=== PATIENT | female | born 1955 | race Caucasian/White ===

== ENCOUNTER 2023-06-24 07:30 | Inpatient (IN) | payer BC, MEDICAID ==
[2023-06-20 11:37] LABS: BASOPHILS % (AUTO) 0.5 % (0-1); EOSINOPHILS # (AUTO) 0.4 X10'3 (0-0.9); EOSINOPHILS % (AUTO) 5.2 % (0-6); LYMPHOCYTES # (AUTO) 1.7 X10'3 (1.1-4.8); LYMPHOCYTES % (AUTO) 23.9 % (21-51); MEAN CORPUSCULAR HEMOGLOBIN 30.2 PG (27.0-31.0); MEAN CORPUSCULAR HGB CONC 32.7 g/dL (33.0-36.5); MEAN CORPUSCULAR VOLUME 92.5 FL (78-98); MEAN PLATELET VOLUME 7.5 FL (7.4-10.4); MONOCYTES # (AUTO) 0.9 X10'3 (0-0.9); MONOCYTES % (AUTO) 13.1 % (2-12); NEUTROPHILS % (AUTO) 57.3 % (42-75); PRE OP HEMATOCRIT 40.3 % (35.0-45.0); PRE OP HEMOGLOBIN 13.1 g/dL (12.0-16.0); PRE OP PLATELET COUNT 270 X10'3 (140-440); RED BLOOD COUNT 4.36 X10'6 (4.20-5.60); RED CELL DISTRIBUTION WIDTH 14.6 % (11.5-14.5)
[2023-06-20 12:16] LABS: ALBUMIN 3.4 G/DL (3.4-5.0); ALBUMIN/GLOBULIN RATIO 0.9 (1.1-1.5); ALKALINE PHOSPHATASE 97 IU/L (46-116); BLOOD UREA NITROGEN 13 MG/DL (7-18); CALCIUM 8.9 MG/DL (8.5-10.1); CHLORIDE 103 MMOL/L (99-107); PRE OP ALT 21 U/L (30-65); PRE OP ANION GAP 8 (8-16); PRE OP AST 22 U/L (10-37); PRE OP BILIRUB, TOTAL 0.3 MG/DL (0.0-1.0); PRE OP GLUCOSE 96 MG/DL (70-104); PRE OP POTASSIUM 4.3 MMOL/L (3.4-5.1); PRE OP SODIUM 138 MMOL/L (135-145); TOTAL CARBON DIOXIDE 27.3 MMOL/L (24-32); TOTAL PROTEIN 7.4 G/DL (6.4-8.2); eGFR 55 ML/MIN
[~2023-06-24] VITALS: Ht 165.1 cm; Wt 92.5 kg
[2023-06-24] VITALS (40 sets, daily range): BP systolic 0–131; BP diastolic 53–88; PULSE 68–86; RESP 8–18; TEMP 97.8–98; O2SAT 90–99
[~2023-06-24 07:30] MED LIST: ALBU8.5H17 INH; AMLO5TAB PO; BUPR-317 PO; CELE200C PO; DOCUMENT DATE & TIME OF BETA-BLOCKER PO ONE; EXEM25TA5 PO; FLUT16SP26 BOTHNARES; LEVO25TA7 PO; LOSA-415 PO; METO50TA16 PO; PREG150C47 PO; TRAZ-251 PO; VENL100T4 PO; cefazolin 2gm/D5W 100mL 100 ML IV ONE; famotidine 20mg tablet PO ONE; ringers solution, lacted 1,000 ML IV SCH; tranexamic acid 650mg tablet PO ONE; vancomycin 1,500 MG in NS 300ml IV soln IV ONE
[2023-06-24] MEDS ORDERED: BUPIVACAINE/MELOXICAM 14 ML VIAL IL ONE ×3 (10:38→13:00)
[2023-06-24] MEDS ORDERED: labetalol 20mg/4ml (5mg/ml) syringe IV PRN (10:55)
[2023-06-24] MEDS ORDERED: acetaminophen 1,000mg/100ml IV 100 ML IV PRN (10:55)
[2023-06-24] MEDS ORDERED: HYDROmorphone/PF 0.2 MG/ML SYRINGE IV PRN ×2 (10:55)
[2023-06-24] MEDS ORDERED: ringers solution, lacted 1,000 ML IV SCH (10:55)
[2023-06-24] MEDS ORDERED: ondansetron/PF 4mg/2ml inj IV PRN ×2 (10:55→13:20)
[2023-06-24] MEDS ORDERED: meperidine/PF 25mg/ml syringe IV PRN ×2 (10:55)
[2023-06-24] MEDS ORDERED: BUPIVAcaine/PF 2.5 mg/ml (0.25%) 30ml vial ONE (11:08)
[2023-06-24] MEDS ORDERED: fentaNYL/PF 50MCG/1 ML 2ML syringe ONE (11:18)
[2023-06-24] MEDS ORDERED: sevoflurane 250ml liquid IH ONE (11:18)
[2023-06-24] MEDS ORDERED: midazolam 1 mg/ML 2ml injection ONE (11:18)
[2023-06-24] MEDS ORDERED: ROPIVAcaine 0.5% (5mg/ml) 30ml vial ONE (12:35)
[2023-06-24] MEDS ORDERED: propofol inj 20 ML IV ONE (12:35)
[2023-06-24] MEDS ORDERED: dexamethasone sod phosphate 4mg/ml inj. ONE (12:36)
[2023-06-24] MEDS ORDERED: ondansetron/PF 4mg/2ml inj ONE (12:37)
[2023-06-24] MEDS ORDERED: acetaminophen 1,000mg/100ml IV 100 ML IV ONE (13:09)
[2023-06-24] MEDS ORDERED: HYDROcodone/acetaminophen 10/325mg tab PO PRN ×2 (13:20)
[2023-06-24] MEDS ORDERED: acetaminophen 325mg tablet PO PRN (13:20)
[2023-06-24] MEDS ORDERED: naloxone 0.4 mg/ml inj IV PRN (13:20)
[2023-06-24] MEDS ORDERED: magnesium hydroxide 30ml (MOM) UD suspension PO PRN (13:20)
[2023-06-24] MEDS ORDERED: diphenhydrAMINE 25mg capsule PO PRN ×2 (13:20)
[2023-06-24] MEDS ORDERED: bisacodyl 10mg suppository rectal RC PRN (13:20)
[2023-06-24] MEDS ORDERED: HYDROmorphone inj. 0.5 MG/0.5 ML DISP.SYRIN IV PRN (13:20)
[2023-06-24] MEDS ORDERED: HYDROmorphone 1 mg/ml syringe IV PRN (13:20)
[2023-06-24] MEDS ORDERED: oxyCODONE IR 5mg (immed. release) tablet PO PRN (13:20)
[2023-06-24] MEDS ORDERED: fluticasone nasal spray 16GM bottle NS PRN (13:20)
[2023-06-24] MEDS ORDERED: traZODone 50mg tablet PO PRN (13:20)
--- NOTE | 2023-06-24 13:24 | NUR ---
Received from OR via , accompanied by Anesthesiologist HAN and report given by Anesthesiolgist. PT IS RESPONSIVE, MOANING - REPORTS PAIN 06/17 - MEDICATED W/ DEMEROL SOON SETTLED IN BED. WILL CONTINUE TO MONITOR AND TREAT NEEDED,. MONITOR SR. 20 G IV PATENT TO L FA. O2 AT 10 LPM PER MASK. SAO2 97%. R KNEE ENCASED IN STEPHANIE WRAP DRESSING - ICE APPLIED. VSS. Addendum: 06/24/23 at 1344 by Heena Sterling RN Amended: Links added.
[2023-06-24] MEDS ORDERED: albuterol 2.5 MG/3 ML nebule NEB PRN (13:30)
[2023-06-24] MEDS: meperidine/PF 25mg/ml syringe IV PRN ×2 (13:55→14:28)
[2023-06-24] MEDS: acetaminophen 325mg tablet PO SCH ×2 (14:00→20:09)
[2023-06-24] MEDS: oxyCODONE IR 5mg (immed. release) tablet PO PRN (15:27)
--- NOTE | 2023-06-24 17:44 | NUR ---
Report called to receiving nurse CHEYENNE Transferred via BED TO [id number] W/ PT. FULLY AWAKE. NOW REPORTING PAIN AT 3/10 - W/ OCCASIONAL SPASMS THAT CAUSE HER TO WINCE. DEMEROL AND DILAUDID GIVEN PER ORDERS W/ ONLY PARTIAL RELIEF - CONTINUED TO FEEL DEEP ACHING PAIN UNTIL OXYCODONE GIVEN. INITIAL DEMEROL CAUSED SAO2 AND B/P T DROP; TOLERATED SUBSEQUENT DOSES W/OUT THESE EFFECTS. DOZING POST OXYCODONE, BUT WHEN AWAKE REPORTED 5/10 PAIN - BUT STATED SHE WAS DOING FINE AND DID NOT WANT ADDITIONAL PAIN MED. LEVEL 3/10 AT TIME OF TRANSFER. DRESSING TO R KNEE D&I W/ COLD THERAPY. TAKEN OFF MONITOR AT 1530 IN ANTICIPATION OF TRANSFER... CONTINUED TO MONITOR B/P AND SAO2. REMAINED ON O2 UNTIL 1730 - SAO2 >92 ON RA. SETTLED INTO NEW ROOM,CALL LIGHT PROVIDED, TRANSFER OF CARE AT BEDSIDE. Addendum: 06/24/23 at 1836 by Heena Sterling RN Amended: Links added.
--- NOTE | 2023-06-24 17:45 | NUR ---
Patient in room PAS IN 900. I have received report from Tory RN in Recovery and had the opportunity to ask questions and assume patient care.
--- NOTE | 2023-06-24 18:00 | NUR ---
I have reviewed and agree with documentation by Yasmine Butcher LVN.
--- NOTE | 2023-06-24 18:32 | NUR ---
Problems reprioritized. Patient report given, questions answered & plan of care reviewed with Ari CUENCA.
--- NOTE | 2023-06-24 19:01 | NUR ---
Report received from Yasmine CUENCA, and assumed care of patient
[2023-06-24] MEDS: potassium cl 20mEq in 1/2 NS 1,000 ML IV SCH ×2 (19:15→21:20)
[2023-06-24] MEDS: ceFAZolin/D5W- 1GM premix 50 ML IV SCH (19:16)
[2023-06-24] MEDS ORDERED: vancomycin/NS 1 GM ADD-VANTAGE 250 ML IV SCH (20:00)
[2023-06-24] MEDS: pregabalin 75mg capsule PO SCH (20:09)
[2023-06-24] MEDS ORDERED: EXEMESTANE 25 MG PO SCH (21:00)
[2023-06-24] MEDS ORDERED: sennosides 8.6mg tablet PO SCH (21:00)
[2023-06-24] MEDS ORDERED: celeCOXIB 100mg capsule PO SCH (21:00)
[2023-06-25] VITALS (7 sets, daily range): BP systolic 88–106; BP diastolic 45–66; PULSE 82; RESP 16–18; TEMP 97.9–98.4; O2SAT 95
[2023-06-25] MEDS: ceFAZolin/D5W- 1GM premix 50 ML IV SCH (00:42)
[2023-06-25] MEDS: acetaminophen 325mg tablet PO SCH ×2 (01:39→09:17)
[2023-06-25] MEDS: oxyCODONE IR 5mg (immed. release) tablet PO PRN ×2 (05:30→10:39)
[2023-06-25] MEDS: potassium cl 20mEq in 1/2 NS 1,000 ML IV SCH (05:31)
[2023-06-25 06:27] LABS: BASOPHILS % (AUTO) 0.1 % (0-1); EOSINOPHILS % (AUTO) 0 % (0-6); HEMOGLOBIN 11.5 g/dl (12.0-16.0); LYMPHOCYTES # (AUTO) 0.8 X10'3 (1.1-4.8); LYMPHOCYTES % (AUTO) 6.5 % (21-51); MEAN CORPUSCULAR HEMOGLOBIN 30.5 PG (27.0-31.0); MEAN CORPUSCULAR HGB CONC 32.8 g/dL (33.0-36.5); MEAN CORPUSCULAR VOLUME 92.9 FL (78-98); MEAN PLATELET VOLUME 7.9 FL (7.4-10.4); MONOCYTES # (AUTO) 1.3 X10'3 (0-0.9); MONOCYTES % (AUTO) 10.7 % (2-12); NEUTROPHILS # (AUTO) 9.8 X10'3 (1.8-7.7); NEUTROPHILS % (AUTO) 82.7 % (42-75); PLATELET COUNT 226 X10'3 (140-440); RED BLOOD COUNT 3.77 X10'6 (4.20-5.60); RED CELL DISTRIBUTION WIDTH 14.7 % (11.5-14.5); WHITE BLOOD COUNT 11.9 X10'3 (4.5-11.0)
[2023-06-25 06:54] LABS: ANION GAP 4 (8-16); CHLORIDE 103 MMOL/L (99-107); POTASSIUM 4.9 MMOL/L (3.5-5.1); SODIUM 135 MMOL/L (135-145)
[2023-06-25] MEDS ORDERED: metoprolol tartrate 50mg tablet PO SCH (08:00)
[2023-06-25] MEDS ORDERED: venlafaxine 25mg tablet PO SCH (08:00)
[2023-06-25] MEDS ORDERED: losartan 25mg tablet PO SCH (08:00)
[2023-06-25] MEDS ORDERED: amLODIPine 5mg tablet PO SCH (08:00)
[2023-06-25] MEDS ORDERED: levoTHYROXINE 25mcg tablet PO SCH (08:00)
[2023-06-25] MEDS ORDERED: buPROPion SR 150mg tablet PO SCH (08:00)
[2023-06-25] MEDS ORDERED: aspirin 325mg tablet PO SCH (08:30)
[2023-06-25] MEDS: pregabalin 75mg capsule PO SCH (09:11)
--- NOTE | 2023-06-25 12:01 | NUR ---
Joint surgery consult: Pt s/p R knee surgery this admit per EMR. Pt seen by MILIND at bedside for written/verbal high protein diet ed w/ RD contact information provided. MILIND encouraged pt to contact dietitian's office if further nutrition questions/concerns. Addendum: 06/25/23 at [address] Amended: Links added.
[2023-06-26] MEDS ORDERED: acetaminophen 325mg tablet PO PRN (13:20)
== END 2023-06-25 11:30 | disposition home or self-care (01) | DRG 470 ==
LOC: PAS IN 07:47 → ORTHO 4S 18:27
PROVIDERS: ADMIT Orthopaedic Surgery; ATTEND Orthopaedic Surgery
PROC: 8E0Y0CZ Robotic Assisted Procedure of Lower Extremity, Open Approach (ICD-10-PCS; 2023-06-24)
PROC: 8E0YXBZ Computer Assisted Procedure of Lower Extremity (ICD-10-PCS; 2023-06-24)
PROC: 0SRC0J9 Replacement of Right Knee Joint with Synthetic Substitute, Cemented, Open Approach (ICD-10-PCS; principal; 2023-06-24 11:18)
DX: M17.11 Unilateral primary osteoarthritis, right knee (principal); M21.161 Varus deformity, not elsewhere classified, right knee
CPT/HCPCS: 36415; 80051; 80053; 82948; 84443; 85025; 87081; 93005; 97110; 97116; 97161; 97530; A4215; A4615; A7000; C1713; C1776; G0378; J0131; J0690; J1100; J1170; J2175; J2250; J2405; J2704; J2795; J3010; J3370; J3480; J3490; J7120; Q0163

== ENCOUNTER 2024-10-25 06:45 | Inpatient (IN) | payer BC, MEDICAID ==
[2024-10-21 14:51] LABS: BASOPHILS % (AUTO) 0.5 % (0-1); EOSINOPHILS # (AUTO) 0.2 X10'3 (0-0.9); EOSINOPHILS % (AUTO) 2.6 % (0-6); LYMPHOCYTES # (AUTO) 1.2 X10'3 (1.1-4.8); LYMPHOCYTES % (AUTO) 19.6 % (21-51); MEAN CORPUSCULAR HEMOGLOBIN 31.5 PG (27.0-31.0); MEAN CORPUSCULAR HGB CONC 33.5 g/dL (33.0-36.5); MEAN PLATELET VOLUME 7.6 FL (7.4-10.4); MONOCYTES # (AUTO) 0.8 X10'3 (0-0.9); MONOCYTES % (AUTO) 12.5 % (2-12); NEUTROPHILS % (AUTO) 64.8 % (42-75); PRE OP HEMATOCRIT 40.9 % (35.0-45.0); PRE OP HEMOGLOBIN 13.7 g/dL (12.0-16.0); PRE OP PLATELET COUNT 222 X10'3 (140-440); PRE OP WHITE BLOOD COUNT 6.2 10'3 (4.8-10.8); RED BLOOD COUNT 4.35 X10'6 (4.20-5.60); RED CELL DISTRIBUTION WIDTH 13.5 % (11.5-14.5)
[2024-10-21 15:10] LABS: ALBUMIN 3.6 G/DL (3.4-5.0); ALBUMIN/GLOBULIN RATIO 0.9 (1.1-1.5); ALKALINE PHOSPHATASE 97 IU/L (46-116); BLOOD UREA NITROGEN 10 MG/DL (7-18); BUN/CREATININE RATIO 10.3 (10.0-20.0); CALCIUM 8.8 MG/DL (8.5-10.1); CHLORIDE 104 MMOL/L (99-107); CREATININE 0.97 MG/DL (0.40-0.90); PRE OP ALT 22 U/L (30-65); PRE OP ANION GAP 7 (8-16); PRE OP AST 19 U/L (10-37); PRE OP BILIRUB, TOTAL 0.4 MG/DL (0.0-1.0); PRE OP GLUCOSE 91 MG/DL (70-104); PRE OP POTASSIUM 4.1 MMOL/L (3.4-5.1); PRE OP SODIUM 143 MMOL/L (135-145); THYROID STIMULATING HORMONE 1.46 ulU/ml (0.34-4.50); TOTAL CARBON DIOXIDE 32.4 MMOL/L (24-32); TOTAL PROTEIN 7.6 G/DL (6.4-8.2); eGFR 57 ML/MIN
[2024-10-25] VITALS (41 sets, daily range): BP systolic 89–117; BP diastolic 44–70; PULSE 58–82; RESP 9–20; TEMP 97.3–98.2; O2SAT 80–100
[~2024-10-25] VITALS: Ht 162.6 cm; Wt 83.5 kg
[2024-10-25] MEDS: ceFAZolin 2gm in dextrose, iso 50 ML IV ONE (06:31)
[2024-10-25] MEDS: DOCUMENT DATE & TIME OF BETA-BLOCKER PO ONE (06:32)
[~2024-10-25 06:45] MED LIST changes: -BUPR-317 PO; +BUPR-561 PO; -CELE200C PO; +LACT1CAP65 PO; +OXYC-150 PO; +TIRZ2.5P3 SUBCUT; +VANCOMYCIN/H2O 1.5g/300mL PB 300 ML IV ONE; +ceFAZolin 2gm in dextrose, iso 50 ML IV ONE; -cefazolin 2gm/D5W 100mL 100 ML IV ONE; -vancomycin 1,500 MG in NS 300ml IV soln IV ONE
[2024-10-25] MEDS ORDERED: ketorolac trometh 30MG/ML vial 30 MG/ML VIAL ONE (06:47)
[2024-10-25] MEDS ORDERED: BUPIVACAINE/MELOXICAM 14 ML VIAL IL ONE (06:47)
[2024-10-25] MEDS ORDERED: ROPIVAcaine 0.5% (5mg/ml) 30ml vial ONE (06:47)
[2024-10-25] MEDS: ringers solution, lacted 1,000 ML IV SCH ×2 (07:21→08:05)
[2024-10-25] MEDS: VANCOMYCIN/H2O 1.5g/300mL PB 300 ML IV ONE (07:21)
[2024-10-25] MEDS: tranexamic acid 650mg tablet PO ONE (07:21)
[2024-10-25] MEDS: famotidine 20mg tablet PO ONE (07:21)
[2024-10-25] MEDS ORDERED: morphine 4 MG/ML inj SYRINge IV PRN (08:05)
[2024-10-25] MEDS ORDERED: morphine 2 MG/ML inj. syringe IV PRN (08:05)
[2024-10-25] MEDS ORDERED: enalaprilat 1.25mg/ml 2ml vial IV PRN (08:05)
[2024-10-25] MEDS ORDERED: meperidine/PF 25mg/ml syringe IV PRN ×3 (08:05)
[2024-10-25] MEDS ORDERED: labetalol 20mg/4ml (5mg/ml) syringe IV PRN (08:05)
[2024-10-25] MEDS: ipratropium/albuterol 3ml nebule IH ONE (08:56)
[2024-10-25] MEDS ORDERED: BUPIVAcaine 0.5% inj/PF 30 ML ONE (09:21)
[2024-10-25] MEDS ORDERED: BUPIVACAINE liposomal/PF 13.3 MG/ML 10mL vial IM ONE (09:21)
[2024-10-25] MEDS ORDERED: midazolam 1 mg/ML 2ml injection ONE (09:22)
[2024-10-25] MEDS ORDERED: fentaNYL /PF 50mcg/ml 5ml ampule ONE (09:22)
[2024-10-25] MEDS ORDERED: sevoflurane 250ml liquid IH ONE (09:23)
[2024-10-25] MEDS ORDERED: LIDOcaine 1%/PF 5ML 10 MG/ML VIAL ONE (09:38)
[2024-10-25] MEDS ORDERED: ePHEDrine 50MG/ML INJ. ONE (09:38)
[2024-10-25] MEDS ORDERED: propofol inj 20 ML IV ONE (09:38)
[2024-10-25] MEDS: ROPIVAcaine 0.5% (5mg/ml) 30ml vial IJ ONE (11:20)
[2024-10-25] MEDS ORDERED: ondansetron/PF 4mg/2ml inj ONE (11:29)
[2024-10-25] MEDS ORDERED: acetaminophen 1,000mg/100ml IV 100 ML IV ONE (11:29)
[2024-10-25 11:51] LABS: APPEARANCE,SYNOVIAL FLUID CLEAR; COLOR,SYNOVIAL FLUID YELLOW
[2024-10-25 11:52] LABS: LYMPHOCYTES,SYNOVIAL FLUID 75 % (0-75); MONOCYTES,SYNOVIAL FLUID 20 % (0-0); NEUTROPHILS,SYNOVIAL FLUID 5 % (0-25); SYN RBC 600 /CU MM (0); SYN WBC 125 /CU MM (0-200)
[2024-10-25] MEDS ORDERED: oxyCODONE IR 5mg (immed. release) tablet PO PRN (11:55)
[2024-10-25] MEDS ORDERED: HYDROmorphone inj. 0.5 MG/0.5 ML DISP.SYRIN IV PRN (11:55)
[2024-10-25] MEDS ORDERED: bisacodyl 10mg suppository rectal RC PRN (11:55)
[2024-10-25] MEDS ORDERED: albuterol 2.5 MG/3 ML nebule NEB PRN (11:55)
[2024-10-25] MEDS ORDERED: acetaminophen 325mg tablet PO PRN (11:55)
[2024-10-25] MEDS ORDERED: ondansetron/PF 4mg/2ml inj IV PRN (11:55)
[2024-10-25] MEDS ORDERED: magnesium hydroxide 30ml (MOM) UD suspension PO PRN (11:55)
[2024-10-25] MEDS ORDERED: traZODone 50mg tablet PO PRN (11:55)
[2024-10-25] MEDS ORDERED: fluticasone nasal spray 16GM bottle NS PRN (11:55)
[2024-10-25] MEDS ORDERED: HYDROmorphone 1 mg/ml syringe IV PRN (11:55)
[2024-10-25] MEDS ORDERED: diphenhydrAMINE 25mg capsule PO PRN ×2 (11:55)
[2024-10-25] MEDS ORDERED: naloxone 0.4 mg/ml inj IV PRN (11:55)
[2024-10-25 11:57] LABS: SYNOVIAL LINING CELLS FEW
[2024-10-25] MEDS ORDERED: meperidine/PF 100mg/ml syringe IV PRN (12:01)
[2024-10-25] MEDS: meperidine/PF 100mg/ml syringe IV PRN (12:09)
[2024-10-25] MEDS: ondansetron/PF 4mg/2ml inj IV PRN (12:14)
[2024-10-25] MEDS: proCHLORperazine 10 MG/2 ml inj IV PRN (12:30)
[2024-10-25] MEDS: ipratropium/albuterol 3ml nebule NEB STA (13:14)
[2024-10-25] MEDS: acetaminophen 325mg tablet PO SCH (14:00)
[2024-10-25] MEDS: ceFAZolin/D5W- 1GM premix 50 ML IV SCH (17:58)
[2024-10-25] MEDS: pregabalin 75mg capsule PO SCH (19:14)
[2024-10-25] MEDS: oxyCODONE IR 5mg (immed. release) tablet PO PRN (19:16)
[2024-10-25] MEDS: vancomycin/NS 1 GM ADD-VANTAGE 250 ML IV SCH (19:31)
[2024-10-25] MEDS: potassium cl 20mEq in 1/2 NS 1,000 ML IV SCH (19:35)
[2024-10-25] MEDS: sennosides 8.6mg tablet PO SCH (21:00)
[2024-10-25] MEDS: Exemestane 25 MG TAB PO SCH (21:00)
[2024-10-26] VITALS: BP 106/61; PULSE 89; RESP 20; O2SAT 93
[2024-10-26 02:00] VITALS: BP 120/66; PULSE 83; RESP 16; TEMP 98.1; O2SAT 95
[2024-10-26 05:58] LABS: BASOPHILS % (AUTO) 0.3 % (0-1); EOSINOPHILS % (AUTO) 0 % (0-6); HEMOGLOBIN 11.1 g/dl (12.0-16.0); LYMPHOCYTES # (AUTO) 0.9 X10'3 (1.1-4.8); LYMPHOCYTES % (AUTO) 9.7 % (21-51); MEAN CORPUSCULAR HEMOGLOBIN 31.8 PG (27.0-31.0); MEAN CORPUSCULAR HGB CONC 33.7 g/dL (33.0-36.5); MEAN CORPUSCULAR VOLUME 94.3 FL (78-98); MEAN PLATELET VOLUME 7.8 FL (7.4-10.4); MONOCYTES # (AUTO) 1.2 X10'3 (0-0.9); MONOCYTES % (AUTO) 12.5 % (2-12); NEUTROPHILS # (AUTO) 7.3 X10'3 (1.8-7.7); NEUTROPHILS % (AUTO) 77.5 % (42-75); PLATELET COUNT 189 X10'3 (140-440); RED CELL DISTRIBUTION WIDTH 13.8 % (11.5-14.5); WHITE BLOOD COUNT 9.4 X10'3 (4.5-11.0)
[2024-10-26 06:00] VITALS: BP 118/62; PULSE 78; RESP 16; TEMP 98; O2SAT 96
[2024-10-26 06:43] LABS: ANION GAP 6 (8-16); CHLORIDE 105 MMOL/L (99-107); POTASSIUM 4.5 MMOL/L (3.5-5.1); SODIUM 137 MMOL/L (135-145); THYROID STIMULATING HORMONE 0.65 ulU/ml (0.34-4.50); TOTAL CARBON DIOXIDE 26.4 MMOL/L (24-32)
[2024-10-26] MEDS: venlafaxine 25mg tablet PO SCH (07:26)
[2024-10-26] MEDS: aspirin 325mg tablet PO SCH (07:26)
[2024-10-26] MEDS: metoprolol succinate 25mg (24-HOUR) SR. Tablet PO SCH (07:27)
[2024-10-26] MEDS: BUPROPION HCL 150MG XL 24 HR 150 MG TAB PO SCH (07:27)
[2024-10-26] MEDS: lactobacillus rhamnosus 10,000 MMU CELLS/CAPSULE PO SCH (07:28)
[2024-10-26] MEDS: amLODIPine 5mg tablet PO SCH (07:28)
[2024-10-26] MEDS: levoTHYROXINE 25mcg tablet PO SCH (07:28)
[2024-10-26] MEDS: losartan 50mg tablet PO SCH (07:29)
[2024-10-26 10:00] VITALS: BP 106/60; PULSE 80; RESP 14; TEMP 97.5; O2SAT 97
[2024-10-26 12:47] VITALS: RESP 15
[2024-10-26] MEDS ORDERED: celeCOXIB 100mg capsule PO SCH (20:00)
[2024-10-27] MEDS ORDERED: acetaminophen 325mg tablet PO PRN (18:20)
== END 2024-10-26 13:46 | disposition home health service (06) | DRG 468 ==
LOC: PAS IN 06:45 → ORTHO 4S 15:30
PROVIDERS: ADMIT Orthopaedic Surgery; ATTEND Orthopaedic Surgery
PROC: 0SPD0JZ Removal of Synthetic Substitute from Left Knee Joint, Open Approach (ICD-10-PCS; 2024-10-25)
PROC: 3E0T3BZ Introduction of Anesthetic Agent into Peripheral Nerves and Plexi, Percutaneous Approach (ICD-10-PCS; 2024-10-25)
PROC: 0SRD0J9 Replacement of Left Knee Joint with Synthetic Substitute, Cemented, Open Approach (ICD-10-PCS; principal; 2024-10-25 09:23)
DX: T84.013A Broken internal left knee prosthesis, initial encounter (principal); T84.069 Wear of articular bearing surface of unspecified internal prosthetic joint; M23.52 Chronic instability of knee, left knee; Y83.8 Other surgical procedures as the cause of abnormal reaction of the patient, or of later complication, without mention of misadventure at the time of the procedure; Y92.89 Other specified places as the place of occurrence of the external cause; Z88.5 Allergy status to narcotic agent; Z88.8 Allergy status to other drugs, medicaments and biological substances; Z88.1 Allergy status to other antibiotic agents; Z91.040 Latex allergy status
CPT/HCPCS: 36415; 71045; 80051; 80053; 82948; 84443; 85025; 87070; 87075; 87081; 89051; 93005; 94640; 94760; 97116; 97161; 97530; A4615; A4618; A6449; A7000; C1713; C1776; C9088; G0378; J0131; J0666; J0690; J0780; J1100; J1885; J2175; J2250; J2405; J2704; J2795; J3010; J3370; J3372; J3480; J3490; J7030; J7120